=== PATIENT | female | born 2000 | race Caucasian/White ===

== ENCOUNTER 2023-10-27 10:37 | Emergency (ER) | payer MEDICAID, SELFPAY ==
[2023-10-27 10:39] VITALS: BP 136/68; PULSE 79; RESP 18; TEMP 36.6; O2SAT 100; BMI 20.2
--- NOTE | 2023-10-27 11:21 | W.ED.GENADLT ---
Documented by User: ENA Gomez 10/30/23 16:09 HPI - General Adult General: Chief complaint: General Medical Stated complaint: [facility], drug and alcohol assessment Time Seen by Provider: 10/27/23 10:42 Source: patient Mode of arrival: ambulatory Limitations: no limitations History of Present Illness: Patient is a 23-year-old female who presents to the emergency department requesting drug and alcohol screen for [facility]. She is asymptomatic at this time, though is also noting that she wants a hepatitis panel run as she believes he has been having symptoms of this. She does have primary care in states she follows up with them infrequently, and I informed her that for any further outpatient testing she needs to follow-up with them so that they can follow her lab work. MD complaint: Present for drug/alcohol screen for [facility] Associated symptoms: Deny chest pain, dyspnea, headache(s), nausea, rash, palpitations or vomiting Review of Systems General: Reports: 10 or more systems reviewed and unremarkable except in HPI and below Const: Reports: other (Present for drug/alcohol screen for [facility]); Denies: fever(s), chills or fatigue Eyes: Denies: change in vision ENMT: Denies: throat pain, ear or mastoid pain or nasal discharge Card: Denies: chest pain, palpitations, swelling of feet/ankles or lightheadedness Resp: Denies: dyspnea, productive cough or wheezing GI: Denies: abdominal pain, nausea, vomiting, diarrhea or constipation : Denies: flank pain, difficulty voiding, dysuria or urinary frequency Musc: Denies: neck pain, back pain or joint pain Skin/Breast: Denies: rash Neuro: Denies: headache(s), numbness in extremities or weakness in extremities Physical Exam Const: COMMON NORMALS: no acute distress, patient oriented x3 and no limitations GENERAL APPEARANCE: cooperative, comfortable and well developed ORIENTATION/CONSCIOUSNESS: Yes awake, Yes oriented to person, Yes oriented to place and Yes oriented to time HENMT: COMMON NORMALS: normocephalic, atraumatic and hearing grossly normal bilaterally HEAD & SCALP: normocephalic and atraumatic Eye: COMMON NORMALS: Equal, round and reactive pupils present, EOMs intact bilaterally and conjunctivae normal CONJUNCTIVA: Yes conjunctivae normal PUPIL: Yes Equal, round and reactive pupils present Neck/C-Spine: COMMON NORMALS: full ROM, supple and no JVD Resp: COMMON NORMALS: normal respiratory effort, No retractions, No use of accessory muscles and clear to auscultation bilaterally AUSCULTATION: clear to auscultation bilaterally Cardio: COMMON NORMALS: no JVD, regular rate, regular rhythm, No clicks present (Cardio), No murmurs present (Cardio) and No rub (Cardio) RATE: regular rate RHYTHM: regular rhythm GI: COMMON NORMALS: Normal to inspection, nondistended, normoactive bowel sounds present, Soft to palpation and non-tender AUSCULTATION: Yes normoactive bowel sounds PALPATION: Yes Soft to palpation RECTAL EXAM: deferred Extremity: COMMON NORMALS: normal to inspection, full ROM and capillary refill normal Neuro: COMMON NORMALS: patient oriented x3, moves all extremities, no focal motor deficits and no sensory deficits noted SENSORIUM/ORIENTATION: Yes oriented to person, Yes oriented to place and Yes oriented to time Psych: COMMON NORMALS: mental status grossly normal and Normal thought process present THOUGHT PROCESS: Normal thought process present Skin: COMMON NORMALS: no rashes or lesions noted GENERAL SKIN EXAM: no rashes or lesions noted Course Vital Signs: Vital signs: Vital Signs Temperature 98 F 10/27/23 12:29 Pulse Rate 82 10/27/23 12:29 Respiratory Rate 16 10/27/23 12:29 Blood Pressure 144/72 10/27/23 12:29 Pulse Oximetry 100 10/27/23 12:29 Oxygen Delivery Me thod Room Air 10/27/23 10:39 MDM - General Adult Medical Decision Making Patient presented for screening for alcohol and drugs. She had no symptoms and states this is for [facility]. Alcohol drug screen obtained, hepatitis panel ordered at patient's request. Patient positive for amphetamines and marijuana. Patient discharged home. Lab Data Laboratory Results Urine Opiates Screen Negative ng/mL (Negative) 10/27/23 11:26 Ur Barbiturates Screen Negative ng/mL (Negative) 10/27/23 11:26 Ur Phencyclidine Scrn Negative ng/mL (Negative) 10/27/23 11:26 Ur Amphetamines Screen Positive ng/mL (Negative) H 10/27/23 11:26 U Benzodiazepines Scrn Negative ng/mL (Negative) 10/27/23 11:26 Urine Cocaine Screen Negative ng/mL (Negative) 10/27/23 11:26 U Marijuana (THC) Screen Positive ng/mL (Negative) H 10/27/23 11:26 Ethyl Alcohol 12 mg/dL (0-10) H 10/27/23 11:43 Hepatitis A IgM Ab Non-reactive (Nonreactive) 10/27/23 11:43 Hep Bs Antigen Non-reactive (Nonreactive) 10/27/23 11:43 Hep B Core IgM Ab Non-reactive (Nonreactive) 10/27/23 11:43 Hepatitis C Antibody Non-reactive (Nonreactive) 10/27/23 11:43 No radiology studies performed this visit Discharge Plan Discharge Patient Disposition: Home Clinical Impression: Encounter for drug screening, Alcohol screening Condition: Stable Prescriptions: No Action paliperidone 3 mg Tablet Extended Release 24hr 3 mg PO QAM Discharge Orders: Discharge ED (Routine); Ordered 10/27/23 Ordered By: Deep Maldonado Discharge Diet: Usual diet Discharge Activity: Resume usual activity Patient Instructions: Pain Management Activity Restrictions/Additional Instructions: Follow-up with primary care for further outpatient testing as needed. Return with any new or concerning symptoms. Coding Level of Care Code ED Shingle Cutter for Chg Fwd Documented by User: Carlos Guerrero DO 10/30/23 16:29 HPI - General Adult General: Chief complaint: General Medical Stated complaint: DHS, drug and alcohol assessment Time Seen by Provider: 10/27/23 10:42 Course Vital Signs: Vital signs: Vital Signs Temperature 98 F 10/27/23 12:29 Pulse Rate 82 10/27/23 12:29 Respiratory Rate 16 10/27/23 12:29 Blood Pressure 144/72 10/27/23 12:29 Pulse Oximetry 100 10/27/23 12:29 Oxygen Delivery Me thod Room Air 10/27/23 10:39 MDM - General Adult Medical Decision Making Patient presented for screening for alcohol and drugs. She had no symptoms and states this is for [facility]. Alcohol drug screen obtained, hepatitis panel ordered at patient's request. Patient positive for amphetamines and marijuana. Patient discharged home. Chart reviewed Lab Data Laboratory Results Urine Opiates Screen Negative ng/mL (Negative) 10/27/23 11:26 Ur Barbiturates Screen Negative ng/mL (Negative) 10/27/23 11:26 Ur Phencyclidine Scrn Negative ng/mL (Negative) 10/27/23 11:26 Ur Amphetamines Screen Positive ng/mL (Negative) H 10/27/23 11:26 U Benzodiazepines Scrn Negative ng/mL (Negative) 10/27/23 11:26 Urine Cocaine Screen Negative ng/mL (Negative) 10/27/23 11:26 U Marijuana (THC) Screen Positive ng/mL (Negative) H 10/27/23 11:26 Ethyl Alcohol 12 mg/dL (0-10) H 10/27/23 11:43 Hepatitis A IgM Ab Non-reactive (Nonreactive) 10/27/23 11:43 Hep Bs Antigen Non-reactive (Nonreactive) 10/27/23 11:43 Hep B Core IgM Ab Non-reactive (Nonreactive) 10/27/23 11:43 Hepatitis C Antibody Non-reactive (Nonreactive) 10/27/23 11:43 Discharge Plan Discharge Patient Disposition: Home Clinical Impression: Encounter for drug screening, Alcohol screening Condition: Stable Prescriptions: No Action paliperidone 3 mg Tablet Extended Release 24hr 3 mg PO QAM Discharge Orders: Discharge ED (Routine); Ordered 10/27/23 Ordered By: Deep Maldonado Discharge Diet: Usual diet Discharge Activity: Resume usual activity Patient Instructions: Pain Management Activity Restrictions/Additional Instructions: Follow-up with primary care for further outpatient testing as needed. Return with any new or concerning symptoms. Coding Level of Care Code ED Shingle Cutter for Ruel Whitley
[2023-10-27 11:45] LABS: Amphetamines Screen Urine Positive (Negative); Barbiturates Screen Urine Negative (Negative); Benzodiazepines Screen Urine Negative (Negative); Cocaine Screen Urine Negative (Negative); Opiate Screen Urine Negative (Negative); PCP Screen Urine Negative (Negative); THC Screen Urine Positive (Negative)
[2023-10-27 12:07] LABS: Alcohol Level 12 mg/dL (0-10)
[2023-10-27 12:24] LABS: Hepatitis A Antibody IgM Non-Reactive (Nonreactive); Hepatitis B Core IgM Non-Reactive (Nonreactive); Hepatitis B Surface Antigen Non-Reactive (Nonreactive); Hepatitis C Virus Antibody Non-Reactive (Nonreactive)
[2023-10-27 12:29] VITALS: BP 144/72; PULSE 82; RESP 16; TEMP 36.6; O2SAT 100
== END 2023-10-27 12:30 | disposition home or self-care (01) ==
PROVIDERS: Emergency Provider Physician Assistant
DX: Z02.83 Encounter for blood-alcohol and blood-drug test (principal); F15.90 Other stimulant use, unspecified, uncomplicated; F12.90 Cannabis use, unspecified, uncomplicated
CPT/HCPCS: 36415; 80074; 80306; 80307; 99283

== ENCOUNTER 2023-11-04 03:31 | Emergency (ER) | payer MEDICAID, SELFPAY ==
[2023-11-04 03:34] VITALS: BP 103/58; PULSE 80; RESP 16; TEMP 36.8; O2SAT 98; BMI 19.0
[2023-11-04] MEDS: sodium chloride 0.9% 1,000 ML 999 ML IV (03:58)
[2023-11-04] MEDS: ondansetron 2 mg/ML SDV 2 mL 4 MG IVP (03:59)
[2023-11-04] MEDS: morphine 4 mg/mL SDV 1 mL 2 MG IVP (04:04)
[2023-11-04 04:05] VITALS: BP 117/80; PULSE 74; RESP 16; O2SAT 100
[2023-11-04 04:07] LABS: Basophils % 0.3 %; Eosinophils # 0.4 10^3/uL (0.0-0.8); Eosinophils % 2.8 %; Lymphocytes # 1.9 10^3/uL (0.8-4.8); Lymphocytes % 14.7 %; Mean Corpuscular HGB Conc 33.4 g/dL (30-55); Mean Corpuscular Hemoglobin 32.1 pg (27-33); Monocytes # 0.7 10^3/uL (0.2-0.9); Monocytes % 5.5 %; Neutrophils # 9.93 10^3/uL (1.8-7.7); Neutrophils % 76.3 %; Nucleated Red Blood Cells % 0 %; Platelet Count 267 10^3/cmm (157-399); Red Blood Count 3.96 10^6/uL (3.85-5.65); White Blood Count 13.01 10^3/uL (3.29-11.43)
[2023-11-04 04:18] LABS: Add Urine Microscopic? YES; Amorphous Sediment Urine TRACE /hpf; Bacteria Urine 2+ /hpf; Bilirubin Urine 1+ (Negative); Blood Urine Neg (Negative); Glucose Urine UA Norm (Normal); Ketones Urine 2+ (Negative); Leukocyte Esterase Urine 2+ (Negative); Mucus Urine 2+ /hpf; Nitrate Urine Negative (Negative); Protein Urine Neg (Negative); RBC Urine 0-4 /hpf (0-2); Urine Appearance Hazy (CLEAR); Urine Color Dark Yellow (Yellow); Urobilinogen Urine 1 mg/dL (Negative); pH Urine 5 (5-7)
[2023-11-04 04:18] LABS: HCG, Serum Qual Negative (Negative)
[2023-11-04 04:19] LABS: Add Urine Culture? Yes; Amphetamines Screen Urine Negative (Negative); Barbiturates Screen Urine Negative (Negative); Benzodiazepines Screen Urine Negative (Negative); Cocaine Screen Urine Negative (Negative); Opiate Screen Urine Negative (Negative); PCP Screen Urine Negative (Negative); THC Screen Urine Positive (Negative)
[2023-11-04 04:29] LABS: Alanine Aminotransferase 12 U/L (0-33); Albumin Level 4.2 g/dL (3.5-5.2); Alkaline Phosphatase 65 U/L (35-105); Aspartate Amino Transferase 13 U/L (0-32); Blood Urea Nitrogen 14 mg/dL (6-20); Carbon Dioxide 18 mmol/L (22-29); Chloride 104 mmol/L (98-107); Creatinine Clr Calc Pharmacy 121.9174; Globulin 3.4 g/dL (1.3-4.6); Glomerular Filtration Rate 123.9 mL/min (90-130); Glucose 86 mg/dL (65-115); Lipase 27 U/L (13-60); Osmolality Calculated 278 mOsm/kg (285-295); Sodium 134 mmol/L (136-145); Total Bilirubin 0.7 mg/dL (0.15-1.2); Total Protein 7.6 g/dL (6.6-8.7)
[2023-11-04] MEDS: haloperidol inj 5 mg/mL INJ 1 mL IVP (04:36)
[2023-11-04 04:38] VITALS: PULSE 112; RESP 18; O2SAT 100
[2023-11-04] MEDS: cefTRIAXone 1,000 MG in sodium chloride 0.9% (plus) 50 ML 100 MG IV (05:16)
--- NOTE | 2023-11-04 05:27 | ED_ITS ---
HPI - Nausea/Vomiting/Diarrhea 2 General: Chief complaint: Nausea/Vomiting/Diarrhea Stated complaint: ABD Pain Time Seen by Provider: 11/04/23 03:48 History of Present Illness: 32-year-old female with multiple episode s of vomiting this evening. She presents with this. She complains of generalized belly pain as well. No fever. Associated symtoms: Denies change in vision, chest pain, dizziness, headache(s) or palpitations Review of Systems 2 Const: Denies: fever(s), chills or body aches Eyes: Denies: change in vision Card: Denies: chest pain or palpitations Resp: Denies: dyspnea, productive cough, non-productive cough or wheezing GI: Denies: diarrhea or hematochezia : Denies: difficulty voiding Skin/Breast: Denies: rash Neuro: Denies: headache(s), weakness in extremities, dizziness or confusion Physical Exam 2 Const: COMMON NORMALS: no acute distress GENERAL APPEARANCE: cooperative; not ill appearing HENMT: COMMON NORMALS: normocephalic, atraumatic and Normal external nose present HEAD & SCALP: normocephalic and atraumatic FACE & SINUS: normal facial exam and face symmetric NOSE: Normal external nose present Eye: COMMON NORMALS: Equal, round and reactive pupils present and EOMs intact bilaterally PUPIL: Yes Equal, round and reactive pupils present Neck/C-Spine: GENERAL: Yes trachea midline Chest: CHEST: Yes Symmetrical chest wall rise Resp: COMMON NORMALS: normal respiratory effort, No retractions, No use of accessory muscles and clear to auscultation bilaterally AUSCULTATION: clear to auscultation bilaterally Cardio: COMMON NORMALS: regular rate and regular rhythm RATE: regular rate RHYTHM: regular rhythm GI: PALPATION: Yes Tenderness to palpation present (GI) (mild generaized) Extremity: COMMON NORMALS: no pedal edema Neuro: DARÍO COMA SCALE: document GCS findings [place] coma scale eye opening: Spontaneous Darío coma scale verbal response: Orientated [place] coma scale motor response: Obey commands Darío coma scale total score: 15 S ENSORY EXAM: Yes extremities (intact) Psych: COMMON NORMALS: speech normal SPEECH: Yes normal speech Skin: COMMON NORMALS: no rashes or lesions noted GENERAL SKIN EXAM: no rashes or lesions noted Course 2 Vital Signs: Vital signs: Vital Signs Temperature 98.2 F 11/04/23 03:34 Pulse Rate 88 11/04/23 05:33 Respiratory Rate 18 11/04/23 05:33 Blood Pressure 111/65 11/04/23 05:33 Pulse Oximetry 97 11/04/23 05:33 Oxygen Delivery Me thod Room Air 11/04/23 03:34 MDM - Nausea/Vomiting/Diarrhea Medical Decision Making She continue to complain of abdominal pain, and vomiting. She was given her parol for both, which worked well. No further vomiting. She received intervenous fluids as well. [place] are stable. Laboratory showed a white blood cell count of 13. with no shift. bicarb is 18. no other significant lab abnormalities, save a mild uti for which she was given abx. these will be continued. she is not . Lab Data 11/04/23 03:54 11/04/23 03:54 Laboratory Results WBC 13.01 10^3/uL (3.29-11.43) H 11/04/23 03:54 RBC 3.96 10^6/uL (3.85-5.65) 11/04/23 03:54 Hgb 12.70 g/dL (11.27-16.99) 11/04/23 03:54 Hct 38.0 % (36-47) 11/04/23 03:54 MCV 96.0 fl (85-98) 11/04/23 03:54 MCH 32.1 pg (27-33) 11/04/23 03:54 MCHC 33.4 g/dL (30-55) 11/04/23 03:54 RDW 13.0 % (12.1-15.1) 11/04/23 03:54 Plt Count 267 10^3/cmm (157-399) 11/04/23 03:54 MPV 9.0 fL (7.4-10.4) 11/04/23 03:54 Neut % (Auto) 76.3 % 11/04/23 03:54 Lymph % (Auto) 14.7 % 11/04/23 03:54 [place] % (Auto) 5.5 % 11/04/23 03:54 Eos % (Auto) 2.8 % 11/04/23 03:54 Baso % (Auto) 0.3 % 11/04/23 03:54 Neut # (Auto) 9.93 10^3/uL (1.8-7.7) H 11/04/23 03:54 Lymph # (Auto) 1.9 10^3/uL (0.8-4.8) 11/04/23 03:54 [place] # (Auto) 0.7 10^3/uL (0.2-0.9) 11/04/23 03:54 Eos # (Auto) 0.4 10^3/uL (0.0-0.8) 11/04/23 03:54 Baso # (Auto) 0.0 10^3/uL (0.0-0.1) 11/04/23 03:54 Nucleated RBC % (auto) 0 % 11/04/23 03:54 Nucleated RBCs # 0.0 /100WBC 11/04/23 03:54 Sodium 134 mmol/L (136-145) L 11/04/23 03:54 Potassium 4.0 mmol/L (3.5-5.1) 11/04/23 03:54 Chloride 104 mmol/L (98-107) 11/04/23 03:54 Carbon Dioxide 18 mmol/L (22-29) L 11/04/23 03:54 Anion Gap 16.0 (5-19) 11/04/23 03:54 BUN 14 mg/dL (6-20) 11/04/23 03:54 Creatinine 0.6 mg/dL (0.5-0.9) 11/04/23 03:54 GFR Calculation 123.9 mL/min (90-130) 11/04/23 03:54 Glucose 86 mg/dL (65-115) 11/04/23 03:54 Calculated Osmolality 278 mOsm/kg (285-295) L 11/04/23 03:54 Calcium 9.0 mg/dL (8.5-10.5) 11/04/23 03:54 Total Bilirubin 0.7 mg/dL (0.15-1.2) 11/04/23 03:54 AST 13 U/L (0-32) 11/04/23 03:54 ALT 12 U/L (0-33) 11/04/23 03:54 Alkaline Phosphatase 65 U/L (35-105) 11/04/23 03:54 C-Reactive Protein 3.0 mg/L (0.0-4.9) 11/04/23 03:54 Total Protein 7.6 g/dL (6.6-8.7) 11/04/23 03:54 Albumin 4.2 g/dL (3.5-5.2) 11/04/23 03:54 Globulin 3.4 g/dL (1.3-4.6) 11/04/23 03:54 Lipase 27 U/L (13-60) 11/04/23 03:54 HCG, Qual Negative (Negative) 11/04/23 03:54 Urine Color Dark yellow (Yellow) 11/04/23 03:55 Urine Appearance Hazy (CLEAR) A 11/04/23 03:55 Urine pH 5 (5-7) 11/04/23 03:55 Ur Specific [place] 1.020 (1.005-1.030) 11/04/23 03:55 Urine Protein Neg (Negative) 11/04/23 03:55 Urine Glucose (UA) Norm (Normal) 11/04/23 03:55 Urine Ketones 2+ (Negative) H 11/04/23 03:55 Urine Blood Neg (Negative) 11/04/23 03:55 Urine Nitrate Negative (Negative) 11/04/23 03:55 Urine Bilirubin 1+ (Negative) H 11/04/23 03:55 Urine Urobilinogen 1 mg/dL (Negative) H 11/04/23 03:55 Ur Leukocyte Esterase 2+ (Negative) H 11/04/23 03:55 Urine RBC 0-4 /hpf (0-2) H 11/04/23 03:55 Urine WBC 5-10 /hpf (0-5) H 11/04/23 03:55 Ur Squamous Epith Cells 5-10 /hpf (0-5) H 11/04/23 03:55 Amorphous Sediment Trace /hpf 11/04/23 03:55 Urine Bacteria 2+ /hpf (NONE) H 11/04/23 03:55 Urine Mucus 2+ /hpf 11/04/23 03:55 Urine Opiates Screen Negative ng/mL (Negative) 11/04/23 03:55 Ur Barbiturates Screen Negative ng/mL (Negative) 11/04/23 03:55 Ur Phencyclidine Scrn Negative ng/mL (Negative) 11/04/23 03:55 Ur Amphetamines Screen Negative ng/mL (Negative) 11/04/23 03:55 U Benzodiazepines Scrn Negative ng/mL (Negative) 11/04/23 03:55 Urine Cocaine Screen Negative ng/mL (Negative) 11/04/23 03:55 U Marijuana (THC) Screen Positive ng/mL (Negative) H 11/04/23 03:55 No radiology studies performed this visit Discharge Plan Discharge Patient Disposition: Home Clinical Impression: Dehydration, UTI (urinary tract infection) Condition: Stable Prescriptions: New Bactrim DS 800-160 mg tablet 1 tab PO Q12H 5 Days Qty: 10 0RF ketorolac 10 mg tablet 10 mg PO TID PRN (Reason: pain) Qty: 10 0RF ondansetron 4 mg tablet,disintegrating 4 mg PO Q6H PRN (Reason: nausea and vomiting) Qty: 14 0RF No Action paliperidone 3 mg Tablet Extended Release 24hr 3 mg PO QAM Discharge Orders: Discharge ED (Routine); Ordered 11/04/23 Ordered By: Rishabh Rizo Patient Instructions: Dehydration (ED), Urinary Tract Infection in Women (ED), Opioid Safety, Pain Management Activity Restrictions/Additional Instructions: Follow a liquid diet for the next 24 hours. Take nausea medication whether nauseated or not for the next 24 hours, then as needed following that. If no vomiting for 24 hours, you may begin to add solid food back in to your diet. Return for vomiting liquids or medications despite the above, fever greater than 100, worsening abdominal pain, any other concerning symptoms. See your doctor next week. Coding Level of Care Code ED Putty Tinter Maker for Ruel Whitley
[2023-11-04 05:33] VITALS: BP 111/65; PULSE 88; RESP 18; O2SAT 97
== END 2023-11-04 05:50 | disposition home or self-care (01) ==
PROVIDERS: Emergency Provider Emergency Medicine
DX: N39.0 Urinary tract infection, site not specified (principal); E86.0 Dehydration
CPT/HCPCS: 80053; 80306; 81001; 83690; 84703; 85025; 86140; 87086; 96365; 96375; 99284; J0696; J1630; J2270; J2405; J7030

== ENCOUNTER → 2023-11-11 10:42 | Outpatient (BNVA) | payer MEDICAID, SELFPAY | PROVIDERS: Visit Provider Family Medicine | DX: M25.571 Pain in right ankle and joints of right foot (principal); M25.471 Effusion, right ankle | CPT/HCPCS: 73610 ==